=== PATIENT | female | born 1985 | race Caucasian/White ===

== ENCOUNTER 2016-03-17 20:13 | Emergency (ER) | payer SELFPAY ==
[~2016-03-17] VITALS: Ht 162.6 cm; Wt 54.5 kg
[~2016-03-17 20:13] MED LIST: ADDERALL XR25 MG PO; ADDERALL10 MG PO; EMOQUETTE 0.151 TAB PO; LEVAQUIN 5500 MG/TA1 PO; MOTRIN 600600 MG/TAB PO; NORCO 325 MG-51 TAB PO; PEN-VEE K500 MG PO; PYRIDIUM200 M1 PO; VALIUM 2MG T2 MG/TAB PO; ZOFRAN 4MG T4 MG/TAB PO
[2016-03-17 20:15] VITALS: TEMP 98.8
[2016-03-17 21:48] LABS: PH 5 (5-8); URINE APPEARANCE Cloudy; URINE BACTERIA Many /hpf; URINE BILIRUBIN Negative (NEGATIVE); URINE BLOOD Negative (NEGATIVE); URINE COLOR Yellow; URINE GLUCOSE Negative (NEGATIVE); URINE KETONE 1+ (NEGATIVE); URINE RBC 0-2 /hpf; URINE UROBILINOGEN Negative (NEGATIVE); URINE WBC 0-2 /hpf
[2016-03-17 22:33] VITALS: BP 113/89; PULSE 84
[2016-03-17 23:48] LABS: CHLAMYDIA/TRACH by PCR Female Not Detected; NEISSERIA GON by PCR Female Not Detected
== END 2016-03-17 22:33 | disposition home or self-care (01) ==
LOC: COL.ER 20:13
PROVIDERS: Nurse Practitioner
DX: N76.0 Acute vaginitis (principal)

== ENCOUNTER 2017-02-01 21:55 | Emergency (ER) | payer OTHER ==
[~2017-02-01] VITALS: Ht 165.1 cm; Wt 60.9 kg
[2017-02-01 21:57] VITALS: BP 120/80; TEMP 99.4
[2017-02-01 22:22] LABS: COLLECTION METHOD CLEAN CATCH
[2017-02-01 22:28] LABS: HCG-QUALITATIVE URINE NEGATIVE
[2017-02-01 22:34] LABS: MUCOUS Present /lpf; PH 5 (5-8); URINE APPEARANCE Hazy; URINE BACTERIA Moderate /hpf; URINE BILIRUBIN Negative (NEGATIVE); URINE BLOOD 2+ (NEGATIVE); URINE COLOR Yellow; URINE GLUCOSE Negative (NEGATIVE); URINE KETONE Negative (NEGATIVE); URINE LEUKOCYTE ESTERASE Trace (NEGATIVE); URINE PROTEIN(semi-quant) Negative (NEGATIVE)
[2017-02-01 22:43] LABS: STREP SCREEN NEGATIVE
[2017-02-01] MEDS ORDERED: CEPHALEXIN500 M1 PO (22:59)
[2017-02-01] MEDS ORDERED: FLAGYL500 MG PO (22:59)
[2017-02-01 23:10] VITALS: PULSE 69
[2017-02-01] MEDS ORDERED: TESSALON P100 MG/CAP PO (23:13)
[2017-02-02 00:34] LABS: CHLAMYDIA/TRACH by PCR Female NOT DETECTED; NEISSERIA GON by PCR Female NOT DETECTED
== END 2017-02-01 23:14 | disposition home or self-care (01) ==
LOC: COL.ER 21:55
PROVIDERS: Emergency Medicine
DX: N39.0 Urinary tract infection, site not specified (principal); N76.0 Acute vaginitis; J02.9 Acute pharyngitis, unspecified; Z98.890 Other specified postprocedural states

== ENCOUNTER 2017-02-27 18:31 | Emergency (ER) | payer OTHER ==
[~2017-02-27] VITALS: Ht 162.6 cm; Wt 58.2 kg
[~2017-02-27 18:31] MED LIST changes: +CEPHALEXIN500 M1 PO; +FLAGYL500 MG PO; +TESSALON P100 MG/CAP PO
[2017-02-27 18:37] VITALS: BP 139/87; TEMP 98.9
[2017-02-27 19:12] LABS: STREP SCREEN POSITIVE
[2017-02-27 19:19] LABS: INFLUENZA A NEGATIVE; INFLUENZA B NEGATIVE
[2017-02-27] MEDS ORDERED: AMOXICILLIN 50500 MG PO (20:11)
[2017-02-27 20:16] VITALS: PULSE 75
== END 2017-02-27 20:17 | disposition home or self-care (01) ==
LOC: COL.ER 18:31
PROVIDERS: Nurse Practitioner
DX: J02.0 Streptococcal pharyngitis (principal); F41.9 Anxiety disorder, unspecified